=== PATIENT | female | born 1970 | race African-American/Black ===

== ENCOUNTER 2025-06-16 12:02 | Emergency (ER) | payer BC ==
[~2025-06-16] VITALS: Ht 170.2 cm; Wt 64.0 kg
[2025-06-16 12:04] VITALS: TEMP 37.2; O2SAT 100
[2025-06-16 12:06] VITALS: PULSE 86; O2SAT 99
[2025-06-16] MEDS ORDERED: ACET-2708 MT (13:22)
[2025-06-16] MEDS ORDERED: LIDO-53 TP (13:25)
[2025-06-16 13:51] VITALS: BP 163/99; RESP 18; TEMP 98.9
[2025-06-16] MEDS: ACETAMINOPHEN 325MG TABLET PO ONE (13:51)
[2025-06-16] MEDS: LIDOCAINE 5% PATCH TOP SCH (13:51)
== END 2025-06-16 13:50 | disposition home or self-care (01) ==
LOC: ER 12:02
DX: M25.511 Pain in right shoulder (principal); I10 Essential (primary) hypertension; Z88.0 Allergy status to penicillin; Z88.6 Allergy status to analgesic agent; Z98.890 Other specified postprocedural states
CPT/HCPCS: 73030; 99283; A4565